=== PATIENT | male | born 1960 | race Caucasian/White ===

== ENCOUNTER 2020-07-12 17:00 | Emergency (ER) | payer MEDICARE ==
[~2020-07-12] VITALS: Ht 177.8 cm; Wt 97.5 kg
[2020-07-12] MEDS ORDERED: ZETIA10 MG PO (17:16)
[2020-07-12] MEDS ORDERED: ENTRESTO 49 MG1 EACH PO (17:17)
[2020-07-12] MEDS ORDERED: ATORVASTATIN CA80 MG PO (17:17)
[2020-07-12] MEDS ORDERED: ASA81BEC PO (17:17)
[2020-07-12] MEDS ORDERED: SUPER THERAVIT1 EACH PO (17:17)
[2020-07-12] MEDS ORDERED: CARVEDILOL12.5 MG PO (17:18)
[2020-07-12 19:54] LABS: ABSOLUTE BASOPHILS 0.1 thou/uL (0.0-0.2); ABSOLUTE EOSINOPHILS 0.2 thou/uL (0.0-0.7); ABSOLUTE LYMPHOCYTES 2.5 thou/uL (0.8-5.3); ABSOLUTE MONOCYTES 1.4 thou/uL (0.0-1.2); BASOPHILS 0.8 %; EOSINOPHILS 2.1 %; HEMATOCRIT 42.2 % (42.0-52.0); LYMPHOCYTES 24.4 %; MCH 31.7 pg (26.0-34.0); MCHC 33.2 g/dL (28.0-37.0); MCV 95.5 fL (80.0-100.0); MONOCYTES 13.5 %; MPV 8.4 fl. (7.2-11.1); NUCLEATED RBCS 0 /100WBC; PLATELET COUNT* 309 thou/uL (150-400); POLYS 59.2 %; RBC 4.42 mil/uL (4.50-6.00); RDW-CV 14.4 % (10.5-14.5); WBC 10.1 thou/uL (4.0-11.0)
[2020-07-12 20:01] LABS: CALCIUM 8.2 mg/dL (8.5-10.1); CREATININE 1.1 mg/dL (0.6-1.3); POTASSIUM 4.6 mmol/L (3.5-5.1); PROTIME 10.7 Seconds (9.20-11.50)
[2020-07-12 20:12] LABS: ALBUMIN 3.6 g/dL (3.4-5.0); TOTAL BILIRUBIN 0.4 mg/dL (<0.1-1.0); TOTAL PROTEIN 7.5 g/dL (6.4-8.2)
[2020-07-12 21:04] VITALS: BP 108/72
--- NOTE | 2020-07-13 10:35 | EKG ---
[place] [address] ELECTROCARDIOGRAM REPORT Name: LISA GRIGSBY Room: [facility]#: [id number] Admission: 07/12/20 Attend Phys: Discharge: 07/12/20 Date of : 58 Date of Service: 07/12/201826 Report #: [id number] THIS REPORT FOR: //name// [facility] ED Test Date: 2020-07-12 Test Time: 18:27:46 Pat Name: LISA GRIGSBY Department: Room: Gender: Health Counselor: EBEN : 1960 Requested By: Vanessa Falcon Order Number: [id number] MD: Omid Oliva Measurements Intervals Hardy Rate: 68 P: 48 NJ: 177 QRS: -21 QRSD: 83 T: -10 QT: 409 QTc: 436 Interpretive Statements Sinus rhythm Borderline left axis deviation Low voltage, precordial leads Borderline T wave abnormalities Baseline wander in lead(s) II,III,aVF No previous ECG available for comparison Electronically Signed On 07-13-2020 10:35:32 CDT by Omid Oliva [email or web address] <ELECTRONICALLY SIGNED> By: Omid Oliva MD, FACC 07/13/20 1035 1827 1827 Omid Oliva MD, [facility] /EPI
== END 2020-07-12 21:04 | disposition home or self-care (01) ==
LOC: M.ERS 17:00
PROVIDERS: Personal Emergency Response Attendant
DX: I95.9 Hypotension, unspecified (principal); Z95.5 Presence of coronary angioplasty implant and graft; Z96.642 Presence of left artificial hip joint